=== PATIENT | male | born 1930 | race Caucasian/White ===

== ENCOUNTER 2016-08-26 08:09 | Day surgery (SDC) | payer MEDICARE ==
--- NOTE | ~2016-08-26 | OP ---
Record Of Operation [facility] [address] [place]. [address] NAME: JASMINA MIRELES : [birth year] STATUS : [facility] UNIT#: [id number] AGE: 85 ADM/REG DATE : 08/26/16 MR#: [id number] REPORT SERV DATE: 08/26/16 DICTATED BY: SHAHEEN BRANTLEY DATE: 08/26/16 REPORT STATUS : Draft TRANSCRIBED BY: MODL DATE: 08/26/16 DATE OF PROCEDURE: 08/26/2016 PREOPERATIVE DIAGNOSES: 1. Dysuria. 2. History of transitional cell cancer of the bladder. 3. Bladder biopsies with fulguration. OPERATIVE PROCEDURE: Cysto with bladder biopsy. ANESTHESIA: General inhalation. SURGEON: Shaheen Brantley M.D. SPECIMENS: 1. Cath urine from the bladder for cytology. 2. Bladder biopsies x2 from right lateral wall using cold cup biopsy forceps. DRAINS: One #20 three-way Montano catheter. COMPLICATIONS: None. IMMEDIATE POSTOP: Satisfactory. DESCRIPTION OF PROCEDURE: The patient was brought into the cysto suite, given inhalational anesthetic, and placed in lithotomy position. Perineum and genitalia were prepped and draped in sterile fashion. Video cystourethroscopy was then performed using a #22 cystoscope Foroblique lens. Distal urethra was normal. Prostate showed evidence of previous resection. Bladder neck was open to allow a 22 cystoscope. The bladder was carefully inspected. The urine was quite cloudy and required a bit of irrigation to clear. Then, the bladder was carefully inspected. The bladder showed heavy trabeculation with multiple cellules and diverticula. There was some hyperemia along the right lateral wall. No obvious tumor however was noted. This area of hyperemia was biopsied x2 with a cold cup biopsy forceps and these biopsy sites were then fulgurated with a Bugbee electrode. There was some hematuria probably from distention of the bladder. For this reason, it was felt that a three-way catheter was indicated for a brief postop continuous irrigation. A #20 three-way was placed in the bladder, the balloon inflated, hooked to continuous irrigation. The irrigant returned clear. The patient was awakened and sent to recovery in satisfactory condition. MS/LEODAN Shaheen Brantley M.D. Record Of [address] [place] [address] NAME: JASMINA MIRELES : [birth year] STATUS : [facility] PAT#: [id number] AGE: 85 ADM/REG DATE : 08/26/16 MR#: [id number] REPORT SERV DATE: 08/26/16 DICTATED BY: SHAHEEN BRANTLEY DATE: 08/26/16 REPORT STATUS : Draft TRANSCRIBED BY: ISABELL DATE: 08/26/16 / [id number] CC: Nia Perez M.D.
[~2016-08-26 08:09] MED LIST: ASA5GR PO; ASAB PO; CEFT5 PO; DIGITEK0.25 MG PO; DSS PO; FISH-EPA1000 MG PO; FLOMAX4 PO; FORTAMET1000 MG PO; GARLIFE PO; GLUCOPHAGE1000 MG PO; GLUCPH PO; GLUMETZA500 MG PO; JANUVIA50 PO; KAPIDEX60 MG PO; LAM250 PO; LAN25 PO; MONO20 PO; MONODOX100 MG PO; MULTIVITAMI1 PO; MYCOLOG II CREA15 GM TOP; PRILO PO; PRILOSEC40 MG PO; PRIN20 PO; SENTAB PO; VITC500 PO; WELL100 PO; Z300 PO; [UNRECOGNIZED DRUG - OTHER] PO
== END 2016-08-26 14:22 | disposition home or self-care (01) ==
LOC: SDC 08:09
PROVIDERS: Urology
PROC: 0TBB8ZX Excision of Bladder, Via Natural or Artificial Opening Endoscopic, Diagnostic (ICD-10-PCS; principal; 2016-08-26 10:00)
DX: N30.01 Acute cystitis with hematuria (principal); N30.21 Other chronic cystitis with hematuria; K21.9 Gastro-esophageal reflux disease without esophagitis; F41.9 Anxiety disorder, unspecified; D64.9 Anemia, unspecified; E11.9 Type 2 diabetes mellitus without complications; M10.9 Gout, unspecified; I10 Essential (primary) hypertension; Z85.51 Personal history of malignant neoplasm of bladder; Z95.0 Presence of cardiac pacemaker; Z79.899 Other long term (current) drug therapy; Z98.890 Other specified postprocedural states; Z98.41 Cataract extraction status, right eye; Z98.42 Cataract extraction status, left eye
CPT/HCPCS: 71020; 80053; 82962; 85025; 87086; 88112; 88305; 88342; 93005; J2250; J2405; J3010